=== PATIENT | male | born 1940 | race Caucasian/White ===

== ENCOUNTER 2019-07-01 19:01 | Inpatient (IN) ==
[2019-07-01 20:11] LABS: Basophils % 0.6 % (0.0-0.8); Hematocrit 30.7 VOL% (42.0-52.0); Immature Granulocytes % 0.2 %; Immature Granulocytes Absolute 0.01 #; Lymphocytes # 0.6 10*3/uL (1.4-4.0); Lymphocytes % 12.4 % (21.2-54.2); Mean Corpuscular HGB Conc 32.6 GM/DL (32-36); Mean Corpuscular Volume 98.1 FL (87-102); Mean Platelet Volume 9.7 FL (9.6-12.0); Monocytes % 9.7 % (1.7-12.7); Neutrophils % 77.1 % (38.7-73.9); Platelet Count 150 T/CUMM (130-400); Red Blood Count 3.13 MC/CUMM (3.8-5.5); Red Cell Distribution Width 13.6 % (9.3-17.3); White Blood Count 4.7 T/CUMM (4-12)
[2019-07-01 20:16] LABS: Allen Test Positive
[2019-07-01 20:17] LABS: ABG Base Excess 7.9 MMOL/L (-2.5-2.5); ABG HCO3 31.7 MMOL/L (20-26); ABG Oxygen Saturation 97.3 % (95-100); ABG PCO2 45.1 MM HG (35-48); ABG PH 7.467 (7.35-7.45); ABG PO2 87.7 MM HG (80-95); ABG TCO2 29.5 MMOL/L (23-27)
[2019-07-01] MEDS ORDERED: LEVOFLOXACIN INJ 500 MG in PREMIX 1 EACH IV STA (20:24)
[2019-07-01 20:26] LABS: INR 1.2; PT Patient Result 12.7 SECS (9.6-12.2)
[2019-07-01 20:33] LABS: Albumin 3.3 G/DL (3.4-5.0); Bilirubin,Total 0.5 MG/DL (0.2-1.0); Calcium 7.4 MG/DL (8.5-10.1); Osmolality,Calculated 277.1 MOS/KG (273-304); Total Protein 7.3 G/DL (6.4-8.3)
[2019-07-01] MEDS ORDERED: ACETAMINOPHEN 325 MG TABLET PO PRN (22:50)
[2019-07-01] MEDS ORDERED: ONDANSETRON 4 MG/2 ML VIAL IV PRN (22:50)
[2019-07-02] MEDS: ALBUTEROL/IPRATROPIUM 3 ML NEB RESP TX SCH ×4 (01:00→19:20)
[2019-07-02] MEDS ORDERED: DEXTROSE 50% 25 GM/50 ML VIAL IV PRN (02:41)
[2019-07-02] MEDS ORDERED: GLUCAGON 1 MG VIAL IM PRN (02:41)
[2019-07-02 07:20] LABS: Basophils % 0.5 % (0.0-0.8); Hematocrit 31.8 VOL% (42.0-52.0); Hemoglobin 10.3 GM/DL (14.0-18.0); Immature Granulocytes Absolute 0.04 #; Lymphocytes # 0.6 10*3/uL (1.4-4.0); Lymphocytes % 14.9 % (21.2-54.2); Mean Corpuscular HGB Conc 32.4 GM/DL (32-36); Mean Corpuscular Volume 97.2 FL (87-102); Mean Platelet Volume 9.2 FL (9.6-12.0); Monocytes % 9.4 % (1.7-12.7); Neutrophils % 74.2 % (38.7-73.9); Platelet Count 137 T/CUMM (130-400); Red Blood Count 3.27 MC/CUMM (3.8-5.5); Red Cell Distribution Width 13.5 % (9.3-17.3)
[2019-07-02 07:40] LABS: Albumin 3.1 G/DL (3.4-5.0); Bilirubin,Total 0.5 MG/DL (0.2-1.0); Calcium 7.4 MG/DL (8.5-10.1); Osmolality,Calculated 276.4 MOS/KG (273-304); Total Protein 7.5 G/DL (6.4-8.3)
[2019-07-02] MEDS ORDERED: NON-FORMULARY MEDICATION (Omeprazole 20 MG) PO SCH (09:00)
[2019-07-02] MEDS: INSULIN REGULAR 100 UNIT/ML SUBCUT SCH ×3 (09:43→21:42)
[2019-07-02] MEDS: ENOXAPARIN 30 MG/0.3 ML SYRINGE SUBCUT SCH (10:03)
[2019-07-02] MEDS: PANTOPRAZOLE 40 MG TABLET PO SCH (10:04)
[2019-07-02] MEDS: amLODIPine 10 MG TABLET PO SCH (10:04)
[2019-07-02] MEDS ORDERED: guaiFENesin 200 MG/10 ML UDCUP PO PRN (15:25)
[2019-07-02] MEDS: SIMVASTATIN 20 MG TABLET PO SCH (21:42)
[2019-07-02] MEDS: TERAZOSIN 5 MG CAPSULE PO SCH (21:42)
[2019-07-03] MEDS: ALBUTEROL/IPRATROPIUM 3 ML NEB RESP TX SCH ×4 (00:30→19:33)
[2019-07-03 06:34] LABS: Basophils % 0.5 % (0.0-0.8); Eosinophils % 0.3 % (0.00-10.9); Hematocrit 30.2 VOL% (42.0-52.0); Hemoglobin 9.7 GM/DL (14.0-18.0); Immature Granulocytes % 0.8 %; Immature Granulocytes Absolute 0.03 #; Lymphocytes # 1.2 10*3/uL (1.4-4.0); Lymphocytes % 30.3 % (21.2-54.2); Mean Corpuscular HGB Conc 32.1 GM/DL (32-36); Mean Corpuscular Volume 97.7 FL (87-102); Monocytes % 10.8 % (1.7-12.7); Neutrophils % 57.3 % (38.7-73.9); Platelet Count 138 T/CUMM (130-400); Red Blood Count 3.09 MC/CUMM (3.8-5.5); Red Cell Distribution Width 13.7 % (9.3-17.3)
[2019-07-03 06:47] LABS: Calcium 7.4 MG/DL (8.5-10.1); Osmolality,Calculated 285.2 MOS/KG (273-304)
[2019-07-03] MEDS: INSULIN REGULAR 100 UNIT/ML SUBCUT SCH ×4 (08:20→20:13)
[2019-07-03] MEDS: amLODIPine 10 MG TABLET PO SCH (08:25)
[2019-07-03] MEDS: ENOXAPARIN 30 MG/0.3 ML SYRINGE SUBCUT SCH (08:26)
[2019-07-03] MEDS: PANTOPRAZOLE 40 MG TABLET PO SCH (08:26)
[2019-07-03] MEDS: TERAZOSIN 5 MG CAPSULE PO SCH (20:14)
[2019-07-03] MEDS: SIMVASTATIN 20 MG TABLET PO SCH (20:14)
[2019-07-03] MEDS ORDERED: LEVOFLOXACIN INJ 250 MG in PREMIX 1 EACH IV SCH (21:00)
[2019-07-04] MEDS: ALBUTEROL/IPRATROPIUM 3 ML NEB RESP TX SCH ×4 (00:40→20:07)
[2019-07-04 06:06] LABS: Basophils % 0.3 % (0.0-0.8); Eosinophils % 0.9 % (0.00-10.9); Hematocrit 28.8 VOL% (42.0-52.0); Hemoglobin 9.4 GM/DL (14.0-18.0); Immature Granulocytes % 0.6 %; Immature Granulocytes Absolute 0.02 #; Lymphocytes # 0.9 10*3/uL (1.4-4.0); Lymphocytes % 28.3 % (21.2-54.2); Mean Corpuscular HGB Conc 32.6 GM/DL (32-36); Mean Corpuscular Volume 95.4 FL (87-102); Monocytes % 10.6 % (1.7-12.7); Neutrophils % 59.3 % (38.7-73.9); Platelet Count 145 T/CUMM (130-400); Red Blood Count 3.02 MC/CUMM (3.8-5.5); Red Cell Distribution Width 13.5 % (9.3-17.3); White Blood Count 3.3 T/CUMM (4-12)
[2019-07-04 06:07] LABS: Calcium 7.7 MG/DL (8.5-10.1); Osmolality,Calculated 275.2 MOS/KG (273-304)
[2019-07-04 06:40] LABS: Band Neutrophils 3 % (0-10); Hypochromasia 1+; Lymphocytes 29 % (20-55); Platelet Estimate Decreased; Segmented Neutrophils 56 % (50-85); Total Cells Counted 100
[2019-07-04] MEDS: INSULIN REGULAR 100 UNIT/ML SUBCUT SCH ×4 (08:27→22:14)
[2019-07-04] MEDS: ENOXAPARIN 30 MG/0.3 ML SYRINGE SUBCUT SCH (09:08)
[2019-07-04] MEDS: PANTOPRAZOLE 40 MG TABLET PO SCH (09:08)
[2019-07-04] MEDS: amLODIPine 10 MG TABLET PO SCH (09:08)
[2019-07-04] MEDS ORDERED: ALBUTEROL/IPRATROPIUM 3 ML NEB RESP TX PRN (15:48)
[2019-07-04] MEDS: TERAZOSIN 5 MG CAPSULE PO SCH (20:33)
[2019-07-04] MEDS: SIMVASTATIN 20 MG TABLET PO SCH (20:33)
[2019-07-05] MEDS: ALBUTEROL/IPRATROPIUM 3 ML NEB RESP TX SCH ×2 (01:01→07:42)
[2019-07-05 06:34] LABS: Basophils % 0.5 % (0.0-0.8); Eosinophils # 0.1 10*3/uL (0.0-0.87); Eosinophils % 2.1 % (0.00-10.9); Hemoglobin 9.2 GM/DL (14.0-18.0); Immature Granulocytes % 0.5 %; Immature Granulocytes Absolute 0.02 #; Lymphocytes % 27.5 % (21.2-54.2); Mean Corpuscular HGB Conc 32.9 GM/DL (32-36); Mean Corpuscular Volume 95.6 FL (87-102); Mean Platelet Volume 10.2 FL (9.6-12.0); Monocytes % 11.2 % (1.7-12.7); Neutrophils % 58.2 % (38.7-73.9); Platelet Count 161 T/CUMM (130-400); Red Blood Count 2.93 MC/CUMM (3.8-5.5); Red Cell Distribution Width 13.4 % (9.3-17.3); White Blood Count 3.7 T/CUMM (4-12)
[2019-07-05 06:57] LABS: Calcium 7.4 MG/DL (8.5-10.1); Osmolality,Calculated 278.4 MOS/KG (273-304)
[2019-07-05 07:06] LABS: Atypical Lymphocytes Few; Band Neutrophils 5 % (0-10); Eosinophils 3 % (0-10); Hypochromasia 1+; Lymphocytes 24 % (20-55); Segmented Neutrophils 59 % (50-85); Total Cells Counted 100
[2019-07-05 07:07] LABS: Microcytosis Slight; Platelet Estimate Normal
[2019-07-05] MEDS: INSULIN REGULAR 100 UNIT/ML SUBCUT SCH ×2 (09:25→12:51)
[2019-07-05] MEDS: ENOXAPARIN 30 MG/0.3 ML SYRINGE SUBCUT SCH (09:30)
[2019-07-05] MEDS: amLODIPine 10 MG TABLET PO SCH (09:31)
[2019-07-05] MEDS: PANTOPRAZOLE 40 MG TABLET PO SCH (09:31)
[2019-07-05] MEDS ORDERED: LEVOFLOXACIN 500 MG TABLET PO ONE (11:30)
[2019-07-05 14:03] VITALS: BP 140/40
== END 2019-07-05 13:38 | disposition home or self-care (01) | DRG 193 ==
LOC: N.ED 19:01 → SUPCPDRO 22:50 → N.EDINP 22:50 → N.5E 23:22
PROVIDERS: ADMIT Internal Medicine; ATTEND Internal Medicine

== ENCOUNTER 2019-08-10 19:21 | Inpatient (IN) ==
[2019-08-10] MEDS ORDERED: ONDANSETRON 4 MG/2 ML VIAL IV STA (19:39)
[2019-08-10] MEDS ORDERED: PANTOPRAZOLE 40 MG TABLET PO STA (19:39)
[2019-08-10 20:34] LABS: Basophils # 0.1 10*3/uL (0.0-0.2); Eosinophils # 0.1 10*3/uL (0.0-0.87); Eosinophils % 1.8 % (0.00-10.9); Hematocrit 27.1 VOL% (42.0-52.0); Hemoglobin 8.6 GM/DL (14.0-18.0); Immature Granulocytes % 0.4 %; Immature Granulocytes Absolute 0.03 #; Lymphocytes % 14.5 % (21.2-54.2); Mean Corpuscular HGB Conc 31.7 GM/DL (32-36); Mean Corpuscular Volume 97.1 FL (87-102); Mean Platelet Volume 9.8 FL (9.6-12.0); Neutrophils % 72.3 % (38.7-73.9); Platelet Count 191 T/CUMM (130-400); Red Blood Count 2.79 MC/CUMM (3.8-5.5); Red Cell Distribution Width 13.4 % (9.3-17.3); White Blood Count 6.7 T/CUMM (4-12)
[2019-08-10 20:47] LABS: INR 1.1; PT Patient Result 12.2 SECS (9.6-12.2); Partial Thromboplastin Time 28.2 SECS (20.8-36.0)
[2019-08-10 20:51] LABS: Alanine Aminotransferase 10 U/L (16-61); Albumin 3.4 G/DL (3.4-5.0); Alkaline Phosphatase 177 U/L (45-117); Aspartate Amino Transferase 16 U/L (0-37); Blood Urea Nitrogen 37 MG/DL (7-18); Calcium 8.2 MG/DL (8.5-10.1); Estimated Glom Filtration Rate 8 ML/MIN; Glucose 147 MG/DL (74-106); Osmolality,Calculated 279.2 MOS/KG (273-304); Total Protein 7.3 G/DL (6.4-8.3); Troponin I 0.016 NG/ML (0.00-0.045)
[2019-08-10] MEDS ORDERED: diphenhydrAMINE CAP 25 MG CAPSULE PO PRN (21:33)
[2019-08-10] MEDS ORDERED: NICOTINE 21 MG/24 HR PATCH TRANSDERM PRN (21:33)
[2019-08-10] MEDS ORDERED: MORPHINE 4 MG/1 ML VIAL IV PRN (21:33)
[2019-08-10] MEDS ORDERED: ALUMINUM/MAGNES/SIMETH MAX STR 30 ML UDCUP PO PRN (21:33)
[2019-08-10] MEDS ORDERED: ONDANSETRON 4 MG/2 ML VIAL IV PRN (21:33)
[2019-08-10] MEDS ORDERED: hydrALAZINE 20 MG/1 ML VIAL IV PRN (21:33)
[2019-08-10] MEDS ORDERED: PANTOPRAZOLE 40 MG VIAL IV SCH (22:00)
[2019-08-11 05:30] LABS: Basophils # 0.1 10*3/uL (0.0-0.2); Basophils % 1.2 % (0.0-0.8); Eosinophils # 0.1 10*3/uL (0.0-0.87); Eosinophils % 2.7 % (0.00-10.9); Hematocrit 26.2 VOL% (42.0-52.0); Hemoglobin 8.3 GM/DL (14.0-18.0); Immature Granulocytes % 0.6 %; Immature Granulocytes Absolute 0.03 #; Lymphocytes # 0.9 10*3/uL (1.4-4.0); Lymphocytes % 17.6 % (21.2-54.2); Mean Corpuscular HGB Conc 31.7 GM/DL (32-36); Mean Corpuscular Volume 96.7 FL (87-102); Mean Platelet Volume 9.8 FL (9.6-12.0); Monocytes % 11.5 % (1.7-12.7); Neutrophils % 66.4 % (38.7-73.9); Platelet Count 167 T/CUMM (130-400); Red Blood Count 2.71 MC/CUMM (3.8-5.5); Red Cell Distribution Width 13.4 % (9.3-17.3); White Blood Count 4.9 T/CUMM (4-12)
[2019-08-11 05:49] LABS: Albumin 3.3 G/DL (3.4-5.0); Bilirubin,Total 0.5 MG/DL (0.2-1.0); Total Protein 6.7 G/DL (6.4-8.3)
[2019-08-11] MEDS: PANTOPRAZOLE 40 MG VIAL IV SCH ×2 (08:15→20:53)
[2019-08-11 11:27] LABS: Hematocrit 26.2 VOL% (42.0-52.0); Hemoglobin 8.2 GM/DL (14.0-18.0)
[2019-08-11] MEDS ORDERED: EPOETIN ALFA 10,000 UNIT/1 ML VIAL IV PRN (15:51)
[2019-08-11] MEDS: VANCOMYCIN 50 MG/ML 60 ML/BOTTLE PO SCH (17:30)
[2019-08-11 19:11] LABS: Hematocrit 22.9 VOL% (42.0-52.0); Hemoglobin 7.3 GM/DL (14.0-18.0)
[2019-08-11] MEDS: POLYETHYLENE GLYCOL POWDER 17 GM PACK PO SCH (20:53)
[2019-08-12] MEDS: VANCOMYCIN 50 MG/ML 60 ML/BOTTLE PO SCH ×5 (00:55→23:16)
[2019-08-12] MEDS ORDERED: SODIUM CHLORIDE 0.9% 1,000 ML IV PRN (06:58)
[2019-08-12 08:02] LABS: Basophils # 0.1 10*3/uL (0.0-0.2); Basophils % 1.5 % (0.0-0.8); Eosinophils # 0.1 10*3/uL (0.0-0.87); Eosinophils % 2.5 % (0.00-10.9); Hematocrit 21.9 VOL% (42.0-52.0); Hemoglobin 7.1 GM/DL (14.0-18.0); Immature Granulocytes % 0.4 %; Immature Granulocytes Absolute 0.02 #; Lymphocytes # 0.8 10*3/uL (1.4-4.0); Lymphocytes % 17.8 % (21.2-54.2); Mean Corpuscular HGB Conc 32.4 GM/DL (32-36); Mean Corpuscular Volume 96.1 FL (87-102); Mean Platelet Volume 9.9 FL (9.6-12.0); Monocytes % 11.4 % (1.7-12.7); Neutrophils % 66.4 % (38.7-73.9); Platelet Count 155 T/CUMM (130-400); Red Blood Count 2.28 MC/CUMM (3.8-5.5); Red Cell Distribution Width 13.9 % (9.3-17.3); White Blood Count 4.7 T/CUMM (4-12)
[2019-08-12] MEDS: PANTOPRAZOLE 40 MG VIAL IV SCH (09:19)
[2019-08-12] MEDS: POLYETHYLENE GLYCOL POWDER 17 GM PACK PO SCH ×4 (09:19→21:20)
[2019-08-12 10:59] LABS: Hematocrit 22.3 VOL% (42.0-52.0); Hemoglobin 7.2 GM/DL (14.0-18.0)
[2019-08-12] MEDS: TERAZOSIN 5 MG CAPSULE PO SCH (17:36)
[2019-08-12 19:40] LABS: Hemoglobin 6.3 GM/DL (14.0-18.0)
[2019-08-13] MEDS: VANCOMYCIN 50 MG/ML 60 ML/BOTTLE PO SCH ×4 (05:03→23:07)
[2019-08-13 06:31] LABS: Basophils # 0.1 10*3/uL (0.0-0.2); Basophils % 1.2 % (0.0-0.8); Eosinophils # 0.1 10*3/uL (0.0-0.87); Hematocrit 26.6 VOL% (42.0-52.0); Immature Granulocytes % 0.5 %; Immature Granulocytes Absolute 0.02 #; Lymphocytes # 0.8 10*3/uL (1.4-4.0); Lymphocytes % 18.5 % (21.2-54.2); Mean Corpuscular HGB Conc 32.3 GM/DL (32-36); Mean Corpuscular Volume 94.7 FL (87-102); Mean Platelet Volume 9.9 FL (9.6-12.0); Monocytes % 12.5 % (1.7-12.7); Neutrophils % 64.3 % (38.7-73.9); Platelet Count 163 T/CUMM (130-400); Red Cell Distribution Width 14.9 % (9.3-17.3); White Blood Count 4.3 T/CUMM (4-12)
[2019-08-13 06:32] LABS: Red Blood Count 2.81 MC/CUMM (3.8-5.5)
[2019-08-13 06:33] LABS: Hemoglobin 8.6 GM/DL (14.0-18.0)
[2019-08-13] MEDS: amLODIPine 10 MG TABLET PO SCH (08:54)
[2019-08-13] MEDS: POLYETHYLENE GLYCOL POWDER 17 GM PACK PO SCH ×4 (08:54→20:17)
[2019-08-13] MEDS: PANTOPRAZOLE 40 MG TABLET PO SCH (08:54)
[2019-08-13] MEDS: SERTRALINE 50 MG TABLET PO SCH (08:54)
[2019-08-13] MEDS: TERAZOSIN 5 MG CAPSULE PO SCH (17:32)
[2019-08-14] MEDS: VANCOMYCIN 50 MG/ML 60 ML/BOTTLE PO SCH ×3 (05:03→17:50)
[2019-08-14 06:26] LABS: Hematocrit 24.8 VOL% (42.0-52.0); Hemoglobin 8.1 GM/DL (14.0-18.0); Mean Corpuscular HGB Conc 32.7 GM/DL (32-36); Mean Corpuscular Volume 94.7 FL (87-102); Mean Platelet Volume 9.8 FL (9.6-12.0); Neutrophils % 63.8 % (38.7-73.9); Platelet Count 160 T/CUMM (130-400); Red Blood Count 2.62 MC/CUMM (3.8-5.5); Red Cell Distribution Width 14.6 % (9.3-17.3); White Blood Count 5.3 T/CUMM (4-12)
[2019-08-14 06:27] LABS: Basophils # 0.1 10*3/uL (0.0-0.2); Basophils % 1.1 % (0.0-0.8); Eosinophils # 0.2 10*3/uL (0.0-0.87); Immature Granulocytes % 0.4 %; Immature Granulocytes Absolute 0.02 #; Lymphocytes % 19.4 % (21.2-54.2); Monocytes % 12.3 % (1.7-12.7)
[2019-08-14] MEDS ORDERED: SODIUM CHLORIDE 0.9% 1,000 ML IV PRN (08:39)
[2019-08-14] MEDS: SERTRALINE 50 MG TABLET PO SCH (08:55)
[2019-08-14] MEDS: amLODIPine 10 MG TABLET PO SCH (08:55)
[2019-08-14] MEDS: PANTOPRAZOLE 40 MG TABLET PO SCH (08:55)
[2019-08-14] MEDS: POLYETHYLENE GLYCOL POWDER 17 GM PACK PO SCH ×4 (08:55→22:20)
[2019-08-14] MEDS: TERAZOSIN 5 MG CAPSULE PO SCH (16:46)
[2019-08-15] MEDS: VANCOMYCIN 50 MG/ML 60 ML/BOTTLE PO SCH ×2 (03:19→06:09)
[2019-08-15 04:55] LABS: Basophils # 0.1 10*3/uL (0.0-0.2); Eosinophils # 0.2 10*3/uL (0.0-0.87); Eosinophils % 2.8 % (0.00-10.9); Hematocrit 31.7 VOL% (42.0-52.0); Hemoglobin 10.3 GM/DL (14.0-18.0); Immature Granulocytes % 1.2 %; Immature Granulocytes Absolute 0.07 #; Lymphocytes % 16.9 % (21.2-54.2); Mean Corpuscular HGB Conc 32.5 GM/DL (32-36); Mean Corpuscular Volume 92.7 FL (87-102); Mean Platelet Volume 9.2 FL (9.6-12.0); Monocytes % 13.4 % (1.7-12.7); Neutrophils % 64.7 % (38.7-73.9); Platelet Count 168 T/CUMM (130-400); Red Blood Count 3.42 MC/CUMM (3.8-5.5); Red Cell Distribution Width 15.5 % (9.3-17.3)
[2019-08-15] MEDS: amLODIPine 10 MG TABLET PO SCH (08:06)
[2019-08-15] MEDS: SERTRALINE 50 MG TABLET PO SCH (08:06)
[2019-08-15] MEDS: POLYETHYLENE GLYCOL POWDER 17 GM PACK PO SCH (08:06)
[2019-08-15] MEDS: PANTOPRAZOLE 40 MG TABLET PO SCH (08:06)
[2019-08-15 08:53] VITALS: BP 164/70
== END 2019-08-15 11:34 | disposition home or self-care (01) | DRG 377 ==
LOC: N.ED 19:21 → N.EDINP 21:17 → SUATTDRO 21:17 → N.5E 21:55
PROVIDERS: ADMIT Family Medicine; ATTEND Internal Medicine